=== PATIENT | male | born 2000 | race Hispanic/Latino ===

== ENCOUNTER 2022-02-05 02:41 | Emergency (ER) | payer OTHER ==
[~2022-02-05] VITALS: Ht 172.7 cm; Wt 77.1 kg
[2022-02-05 02:59] VITALS: BP 121/65
== END 2022-02-05 04:15 | disposition home or self-care (01) ==
LOC: EDH 02:41
DX: M79.672 Pain in left foot (principal); X58.XXXA Exposure to other specified factors, initial encounter; Y93.89 Activity, other specified; Y92.89 Other specified places as the place of occurrence of the external cause; Y99.8 Other external cause status